=== PATIENT | male | born 1955 | race Caucasian/White ===

== ENCOUNTER 2025-03-31 15:10 | Emergency (ER) | payer MEDICARE, OTHER | END 2025-03-31 16:10 | disposition home or self-care (01) | LOC: JP.ED 15:10 | DX: S80.869A Insect bite (nonvenomous), unspecified lower leg, initial encounter (principal); I10 Essential (primary) hypertension; E78.00 Pure hypercholesterolemia, unspecified; Z79.899 Other long term (current) drug therapy; W57.XXXA Bitten or stung by nonvenomous insect and other nonvenomous arthropods, initial encounter | CPT/HCPCS: 99282; 99283 ==

== ENCOUNTER 2025-03-31 20:27 | Emergency (ER) | payer MEDICARE, OTHER | END 2025-03-31 21:13 | disposition left against medical advice (07) | LOC: JP.ED 20:27 | DX: Z53.21 Procedure and treatment not carried out due to patient leaving prior to being seen by health care provider (principal) ==

== ENCOUNTER 2025-04-01 01:24 | Emergency (ER) | payer MEDICARE, OTHER ==
[2025-04-01 02:13] LABS: BASOPHILS ABSOLUTE AUTO 0.03 K/uL (0.00-0.10); BASOPHILS PERCENT AUTO 0.4 % (0.1-1.3); EOSINOPHILS ABSOLUTE AUTO 0.04 K/uL (0.00-0.40); EOSINOPHILS PERCENT AUTO 0.6 % (0.0-5.4); IMMATURE GRAN ABSOLUTE AUTO 0.06 K/uL (0.00-0.23); IMMATURE GRAN PERCENT AUTO 0.9 % (0.0-0.7); LYMPHOCYTES ABSOLUTE AUTO 0.20 K/uL (0.8-3.3); LYMPHOCYTES PERCENT AUTO 2.9 % (11.4-47.7); MONOCYTES ABSOLUTE AUTO 0.38 K/uL (0.20-0.90); MONOCYTES PERCENT AUTO 5.6 % (3.3-12.6); NEUTROPHILS ABSOLUTE AUTO 6.09 K/uL (1.0-7.6); NEUTROPHILS PERCENT AUTO 89.6 % (40.0-78.1); PLATELET COUNT,PLT 272 K/uL (130-375); RED BLOOD CELL COUNT 3.48 M/uL (4.14-5.76); WHITE BLOOD CELL COUNT,WBC 6.8 K/uL (3.2-11.0)
[2025-04-01 02:34] LABS: A/G RATIO 1.0 (1.2-2.2); ALANINE AMINOTRANSFERASE,ALT 61 U/L (12-78); ASPARTATE AMNIOTRANSFERASE,AST 53 U/L (15-37); BILIRUBIN TOTAL 2.1 mg/dL (0.2-1.0); BLOOD UREA NITROGEN,BUN 17 mg/dL (7-18); CARBON DIOXIDE,CO2 27 mmol/L (21-32); CHLORIDE,CL 94 mmol/L (100-108); CREATININE 1.3 mg/dL (0.8-1.3); EST CRCL DRUG DOSING (CG) 50.85 mL/min; ESTIMATED GFR 60 mL/min (>60); GLUCOSE RANDOM 173 mg/dL (74-106); POTASSIUM,K 3.7 mmol/L (3.6-5.2); PROTEIN TOTAL,TP 6.9 g/dL (6.4-8.2); SODIUM,NA 131 mmol/L (140-148)
[2025-04-01] MEDS: Ketorolac 30 MG/ML SDV IVPUSH ONE (03:19)
== END 2025-04-01 04:06 | disposition home or self-care (01) ==
LOC: JP.ED 01:24
DX: G44.89 Other headache syndrome (principal); R50.9 Fever, unspecified; E78.00 Pure hypercholesterolemia, unspecified; I10 Essential (primary) hypertension; Z79.899 Other long term (current) drug therapy
CPT/HCPCS: 36415; 80053; 85025; 86618; 86666; 96365; 96375; 99284; J0696; J1885; 99283